=== PATIENT | male | born 2000 | race Hispanic/Latino ===

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

== ENCOUNTER 2022-08-02 10:08 | Emergency (ER) | payer OTHER, MEDICAID, SELFPAY ==
--- NOTE | ~2022-08-02 | XR_ITS ---
Portable chest x-ray Comparison: None Clinical History: Lung discomfort Findings: Lungs are clear, without focal consolidation or pleural effusion. Cardiomediastinal silho uette is unremarkable. Bones and soft tissues are unremarkable. Impression: Normal chest. Reviewed, dictated and finalized at location M. Impression: Normal chest.
--- NOTE | 2022-08-02 10:11 | ECG_ITS ---
Measurements Intervals [place] Rate: 61 P: 20 CT: 151 QRS: 41 QRSD: 105 T: 30 QT: 350 QTc: 355 Interpretive Statements SINUS RHYTHM DELAYED PRECORDIAL R/S TRANSITION MINIMAL Q WAVES- INFERIOR LEADS ST ELEVATION IN DIFFUSE LEADS, PROBABLY EARLY REPOLARIZATION BORDERLINE ECG NO PREVIOUS ECG AVAILABLE FOR COMPARISON Electronically Signed On 08-02-2022 10:57:06 CDT by Curry Coleman D.O.
[2022-08-02 10:42] VITALS: BP 148/95; PULSE 68; RESP 16; TEMP 37; O2SAT 98
[2022-08-02 10:55] VITALS: O2SAT 100
--- NOTE | 2022-08-02 11:10 | ED.URI ---
HPI - URI/Sore Throat General Chief Complaint: Upper Respiratory Infection Stated Complaint: COUGH,RIBS SORE WITH DEEP BREATH Time Seen by Provider: 08/02/22 10:47 History of Present Illness HPI Narrative: Patient is a 22-year-old healthy male here for evaluation of epigastric/lower rib discomfort x2 days. Patient states the pain is described as a soreness in his lower ribs, worse with inspiration and with cough. He states the pain is worsened over the past several days which prompted his ED evaluation. He has not taken any medicine for symptoms. Positive sick contacts, patient's boss is sick with similar symptoms. He has not taken any medicine for symptoms. He has had no congestion, rhinorrhea, sore throat, cough, fevers, chills, nausea, vomiting, diarrhea. Related Data Allergies Allergy/AdvReac Type Severity Reaction Status Date / Time No Known Allergies Allergy Mild Verified 08/02/22 10:56 Review of Systems Review of Systems: Gen.: Denies fevers or chills Eyes: Denies eye pain or visual change ENT: Denies congestion Respiratory: Denies shortness of breath or cough CV: Reports lower chest pain GI: Denies abdominal pain nausea, emesis or diarrhea denies burning, urgency, frequency or hematuria Musculoskeletal: Denies back pain or muscle pain Neuro: Denies numbness, tingling, weakness or focal weakness Skin: Denies rash Except as documented, all other systems reviewed and negative PMFSH Past Medical History Medical History Healthy adult Social History Social History (Updated 05/25/19 @ 19:01 by Anabella Golden MD) Smoking status: Never smoker Alcohol intake: current Substance use: never Exam Narrative: APPEARANCE: Well appearing, no pain in distress, well-nourished. Head: Normocephalic and atraumatic. EYES: PERRLA/EOMI, conjunctivae clear NOSE: No nasal drainage EARS: External ear normal in appearance THROAT: Oropharynx is clear. Mucous membranes are moist. NECK: Supple. No adenopathy, no masses. RESPIRATORY: Airway patent, respirations nonlabored. Clear to auscultation bilaterally, no rales, rhonchi, wheezing. CARDIOVASCULAR: Regular rate and rhythm without murmurs, rubs, or gallops. ABDOMINAL: Normoactive bowel sounds. Soft, nontender, nondistended. No rebound tenderness or guarding. MUSCULOSKELETAL: no tenderness to palpation along the chest wall. Extremities are warm and well-perfused. Moves all extremities well. No edema. NEURO: Normal speech. No focal neurologic deficits. SKIN: Skin is warm and dry. No rashes. PSYCHIATRIC: Normal affect/mood. Course Vital Signs Vital signs: Vital Signs Temperature 98.6 F 08/02/22 10:42 Pulse Rate 68 08/02/22 10:42 Respiratory Rate 16 08/02/22 10:42 Blood Pressure 148/95 H 08/02/22 10:42 Pulse Oximetry 98 08/02/22 10:42 Temperature 98.6 F 08/02/22 10:42 Pulse Rate 68 08/02/22 10:42 Respiratory Rate 16 08/02/22 10:42 Blood Pressure 148/95 H 08/02/22 10:42 Pulse Oximetry 100 08/02/22 10:55 Oxygen Delivery Room Air 08/02/22 10:55 MDM - URI/Sore Throat MDM Narrative Medical decision making narrative: 22-year-old male here for evaluation of epigastric abdominal discomfort/rib discomfort for the past several days. He is nontoxic in appearance and has normal vital signs, no abdominal tenderness on exam or tenderness to palpation of the chest wall. His heart and lungs are clear. Basic labs are unremarkable. EKG with likely benign early repolarization pattern, negative troponin. His chest x-ray is clear, viral swabs are negative. Patient is PERC negative, not complaining of shortness of breath, unlikely PE therefore dimer was not obtained. He is feeling improved after Maalox. He does have a history of acid reflux. Will send home with GI follow-up. No indication for intra-abdominal imaging at this time. We discussed return precautions and h
[2022-08-02] MEDS: MAG HYDROX/AL HYDROX/SIMETH 30 ML UDC PO (11:22)
[2022-08-02 11:52] LABS: Influenza A QL RT-PCR Negative (Negative); Influenza B QL RT-PCR Negative (Negative); SARS-CoV-2 RNA PCR Negative (Negative)
[2022-08-02 11:53] LABS: Basophils Absolute Auto 0.1 K/mm3 (0.0-0.1); Basophils Percent Auto 0.6 % (0.2-1.2); Eosinophils Absolute Auto 0.1 K/mm3 (0-0.3); Eosinophils Percent Auto 0.5 % (0-4.4); Hematocrit 49.7 % (42.0-52.0); Hemoglobin 17.1 g/dL (14.0-18.0); Immature Granulocyte Absolute 0.01 K/mm3 (0.00-0.031); Immature Granulocyte Percent A 0.1 % (0-0.5); Lymphocytes Absolute Auto 2.52 K/mm3 (0.9-3.2); Lymphocytes Percent Auto 24.2 % (18.3-44.2); Mean Corpuscular HGB Conc 34.4 g/dl (32-36); Mean Corpuscular Hemoglobin 29.1 pg (26-34); Mean Corpuscular Volume 84.7 fl (80-100); Mean Platelet Volume 8.6 fl (7.4-10.4); Monocytes Absolute Auto 0.7 K/mm3 (0.1-0.6); Monocytes Percent Auto 6.3 % (2.6-8.5); Neutrophils Absolute Auto 7.1 K/mm3 (1.3-6.7); Neutrophils Percent Auto 68.3 % (45.5-73.1); Platelet Count Result 316 k/mm3 (150-375); Red Blood Count 5.87 M/mm3 (4.6-6.20); Red Cell Distribution Width 12.4 % (11.5-14.5); White Blood Count 10.4 K/mm3 (4.5-10.0)
[2022-08-02 12:06] LABS: Alanine Aminotransferase 31 U/L (6-50); Alkaline Phosphatase 66 U/L (38-126); Anion Gap 8 mmol/L (8-16); Aspartate Amino Transferase 23 U/L (17-59); Bilirubin,Total 1.2 mg/dL (0.2-1.3); Blood Urea Nitrogen 6 mg/dL (9-20); Calcium 9.4 mg/dL (8.4-10.2); Carbon Dioxide 29 mmol/L (22-30); Chloride 102 mmol/L (98-107); Estimated CRCL calculation 192 ml/min; Estimated Glomerular Filt Rate > 60; Glucose 99 mg/dL (65-110); Lipase 27 U/L (23-300); Potassium 4.2 mmol/L (3.4-5.0); Sodium 139 mmol/L (137-145)
[2022-08-02 12:17] LABS: Troponin I < 0.012 ng/mL (0.000-0.034)
== END 2022-08-02 12:39 | disposition home or self-care (01) ==
PROVIDERS: Emergency Provider Physician Assistant
DX: K29.70 Gastritis, unspecified, without bleeding (principal); R94.31 Abnormal electrocardiogram [ECG] [EKG]
CPT/HCPCS: 36415; 71045; 80053; 83690; 84484; 85025; 87636; 93005; 99284; A9270

== ENCOUNTER 2022-10-12 15:11 | Emergency (ER) | payer OTHER, SELFPAY ==
--- NOTE | ~2022-10-12 | XR_ITS ---
EXAMINATION: XR hand LT min 3V DATE: 10/12/2022 16:17 INDICATION: Laceration to the dorsum of the left hand. TECHNIQUE: Posteroanterior, oblique and lateral views of the left hand were obtained. COMPARISON: None. FINDINGS: Alignment is normal. No fracture. Joint spaces are normal. Bandaging material overlying the dorsum of the left hand. Soft tissues appear unremarkable with no evident radiopaque foreign bodies. IMPRESSION: 1. No osseous abnormality or radiopaque foreign bodies. Reviewed, dictated and finalized at location A.
[2022-10-12 15:12] VITALS: BP 149/83; PULSE 86; RESP 14; TEMP 36.5; O2SAT 100
[2022-10-12] MEDS: TETANUS,DIPHTHERIA,AC PERTUSSIS ADULT (0.5 ML) BOOSTRIX IM (16:14)
--- NOTE | 2022-10-12 16:51 | ED.GENADULT ---
HPI - General Adult General Chief complaint: Wound/Laceration Stated complaint: lac to L hand Time Seen by Provider: 10/12/22 16:00 Source: patient Mode of arrival: ambulatory Limitations: no limitations History of Present Illness HPI narrative: This is a 22-year-old male who presents to the ED with chief complaint of left hand laceration following an injury today. Patient states he was working on his car and accidentally cut the hand on a laney fender. He states he was just walking past and accidentally caught the hand on the car. Reports bleeding at the time, however has been able to control it while here with pressure. Denies any numbness or weakness. Denies any further site of pain or injury. Related Data Allergies Allergy/AdvReac Type Severity Reaction Status Date / Time No Known Allergies Allergy Mild Verified 10/12/22 16:21 [facility] Past Medical History Medical History Healthy adult Social History Social History (Updated 05/25/19 @ 19:01 by Anabella Golden MD) Smoking status: Never smoker Alcohol intake: current Substance use: never Exam Narrative: GENERAL: Well-appearing, well-nourished, and in no acute distress. HEAD: Normocephalic, atraumatic. EYES: PERRLA and EOMI. ENT: Nares clear, no rhinorrhea or epistaxis. Mucous membranes moist. Oropharynx without tonsillar hypertrophy exudate or other lesions. NECK: Supple. No adenopathy or masses. CHEST: No respiratory distress. Clear to auscultation. No wheezes rales or rhonchi HEART: Regular rate and rhythm. No murmur heard. Normal peripheral pulses. ABDOMEN: Soft, nontender, nondistended, normal active bowel sounds. MSK: Normal range of motion. No edema. SKIN: There is a superficial 1.5 cm laceration to the dorsum of the left hand. Bleeding controlled. No overt foreign bodies. No contamination. No bruising. Warm, dry, no rash. Neurovascular intact distally. NEURO: Alert and oriented x3. No focal deficits. PSYCH: Normal mood and affect. Course Vital Signs Vital signs: Vital Signs Temperature 97.7 F 10/12/22 15:12 Pulse Rate 86 10/12/22 15:12 Respiratory Rate 14 10/12/22 15:12 Blood Pressure 149/83 H 10/12/22 15:12 Pulse Oximetry 100 10/12/22 15:12 Oxygen Delivery Room Air 10/12/22 15:12 Temperature 97.7 F 10/12/22 15:12 Pulse Rate 86 10/12/22 15:12 Respiratory Rate 14 10/12/22 15:12 Blood Pressure 149/83 H 10/12/22 15:12 Pulse Oximetry 100 10/12/22 15:12 Oxygen Delivery Room Air 10/12/22 15:12 Procedures Laceration Laceration 1: Date: 10/12/22 Time: 18:20 Site: hand Side (If applicable): left Size (cm): 1.5 Description: linear Depth: simple, single layer Local Anesthetic: lidocaine 1% and with epi Amount of anesthesia used (mL): 2 Pre-repair: wound explored, irrigated extensively and deep structures intact ====== Skin Level ====== Skin layer closed with: nylon Size (cm): 5-0 Number of sutures: 3 Technique: simple, interrupted ====== Subcutaneous Layer ====== ====== Muscle Layer ====== ====== Tendon Layer ====== Dressing: simple dressing with topical abx Medical Decision Making MDM Narrative Medical decision making narrative: This is a 22-year-old male who presents to the ED with chief complaint of left hand dorsal laceration following an injury while working on a car today. Vitals are normal. Exam shows simple, superficial 1.5 cm laceration to the dorsum of the left hand. Bleeding controlled. Wound was well cleaned and irrigated here in the department. Sutures placed without complication. He is neurovascularly intact distally. He will be discharged in stable condition with laceration instructions given. Supportive measures for home discussed. Patient is understanding and agreeable with plan for
== END 2022-10-12 18:04 | disposition home or self-care (01) ==
PROVIDERS: Emergency Provider Physician Assistant
DX: S61.412A Laceration without foreign body of left hand, initial encounter (principal); Z23 Encounter for immunization; W26.8XXA Contact with other sharp object(s), not elsewhere classified, initial encounter
CPT/HCPCS: 12001; 73130; 90471; 90715; 99283

== ENCOUNTER 2023-07-16 21:54 | Emergency (ER) | payer SELFPAY ==
[2023-07-16 21:55] VITALS: BP 139/79; PULSE 83; RESP 15; TEMP 36.5; O2SAT 100
--- NOTE | 2023-07-16 22:13 | ED.SKABFB ---
HPI - Skin/Abscess/Foreign Bdy General Chief complaint: Skin/Abscess/Foreign Body Stated complaint: blisters on feet since saturday` Time Seen by Provider: 07/16/23 22:00 History of Present Illness HPI narrative: 23-year-old male presents to emergency department for a rash to the plantar aspect of his feet x3 days. Patient states he has known athlete's foot and states he started using an [id number] powder for athlete's foot on his feet and then began developing ulcerations to the bottom of his feet. He denies recent insect or tick bites, penile lesions, fever or vomiting. Denies rash anywhere else on the body. States he had 1 sexual partner 2 months ago and is not concerned for STDs. Related Data Allergies Allergy/AdvReac Type Severity Reaction Status Date / Time No Known Allergies Allergy Mild Verified 10/12/22 16:21 Review of Systems Review of Systems: CONSTITUTIONAL: Denies fever, chills, or sweats. EYES: Denies visual changes, redness, or discharge. ENT: Denies rhinorrhea, congestion, sore throat, or otalgia. CARDIOVASCULAR: Denies chest pain, palpitations, or edema. RESPIRATORY: Denies cough or dyspnea. GASTROINTESTINAL: Denies abdominal pain, nausea, vomiting, or diarrhea. GENITOURINARY: Denies dysuria or hematuria. SKIN: See HPI MUSCULOSKELETAL: Denies back pain, joint pain, or myalgia. NEUROLOGIC: Denies headache, numbness, or weakness. PSYCHIATRIC: Denies anxiety or depression. PMFSH Past Medical History Medical History Healthy adult Social History Social History Smoking status: Never smoker Alcohol intake: current Substance use: never Exam Narrative: GENERAL: Well-appearing, well-nourished, and in no acute distress. HEAD: Normocephalic, atraumatic. NECK: Supple. CHEST: Clear to auscultation. No respiratory distress. HEART: Regular rate and rhythm. No murmur heard. Normal peripheral pulses. EXTREMITIES: Normal range of motion. No edema. SKIN: Keratotic flaking rash to the plantar aspects of the bilateral feet and in the interdigital folds consistent with tinea pedis. There are scattered areas of skin breakdown ulcerations to the plantar aspect of the feet. No surrounding erythema or purulent drainage. No rash anywhere else on the body including the palms of the hands. NEURO: No focal deficits. Alert and oriented x3 Course Vital Signs Vital signs: Vital Signs Temperature 97.7 F 07/16/23 21:55 Pulse Rate 83 07/16/23 21:55 Respiratory Rate 15 07/16/23 21:55 Blood Pressure 139/79 07/16/23 21:55 Pulse Oximetry 100 07/16/23 21:55 Oxygen Delivery Room Air 07/16/23 21:55 Temperature 97.7 F 07/16/23 22:14 Pulse Rate 83 07/16/23 22:14 Respiratory Rate 15 07/16/23 22:14 Blood Pressure 139/79 07/16/23 22:14 Pulse Oximetry 100 07/16/23 22:14 Oxygen Delivery Room Air 07/16/23 22:14 MDM - Skin/Abscess/Foreign Bdy MDM Narrative Medical decision making narrative: 23-year-old male presents to emergency department areas of ulcerations to the plantar aspect of his feet that started 3 days ago after using a topical powder for tinea pedis. Vital stable. Exam is significant for tinea pedis with scattered areas of skin breakdown ulcerations. There is no evidence of secondary infection. Patient denies concerns for or sexually transmitted diseases, denies tick exposure. Will prescribe clotrimazole for tinea pedis and provide follow-up for Podiatry and PCP. Strict ED return precautions were discussed. He is agreeable to plan verbalized understanding. Discharged in stable condition. Discharge Plan Discharge Clinical Impression: Skin lesion of foot Tinea pedis Qualifiers: Laterality: bilateral Qualified Code(s): B35.3 - Tinea pedis Patient Disposition: Home, Self-Care Condition: Stable Instructions: Antibiotic Form, Sk
[2023-07-16 22:14] VITALS: BP 139/79; PULSE 83; RESP 15; TEMP 36.5; O2SAT 100
== END 2023-07-16 22:40 | disposition home or self-care (01) ==
PROVIDERS: Emergency Provider Physician Assistant
DX: B35.3 Tinea pedis (principal)
CPT/HCPCS: 99283